=== PATIENT | female | born 1960 | race Caucasian/White ===

== ENCOUNTER → 2023-06-21 | Outpatient (CLI) | payer MEDICARE, BC ==
[~2023-06-21] MED LIST: B12 ACTIVE1000 MCG INJ; CEVIMELINE HCL30 MG PO; CYMBALTA60 M1 PO; FUROSEMIDE20 MG PO; GABAPENTIN400 M2 PO; LEVOTHYROXINE0.05 MG PO; LOSARTAN POTASS50 M1 PO; REXULTI0.5 MG PO; ROPINIROLE HYDRO4 MG PO; VITAMIN D310 MCG
== END ==
LOC: AMSURD 13:01
DX: Z48.02 Encounter for removal of sutures (principal)